=== PATIENT | male | born 1995 | race Hispanic/Latino ===

== ENCOUNTER 2024-07-12 02:36 | Observation (INO) | payer OTHER ==
[2024-07-12] VITALS (8 sets, daily range): BP systolic 109–145; BP diastolic 58–74
[~2024-07-12] VITALS: Ht 172.7 cm; Wt 104.7 kg
[2024-07-12 03:02] LABS: BASOPHILS 0.1 % (0-2); EOSINOPHILS 0.1 % (0-6); HEMATOCRIT 43.2 % (35.0-50.0); LYMPHOCYTES 6.3 % (24-44); MCH 30.5 (27-36); MCHC 34.6 g/dl (30-36); MCV 88.1 fl (81-99); MONOCYTES 7.5 % (0-12); PLATELET COUNT 256 K/uL (140-440)
[2024-07-12 03:21] LABS: ALBUMIN 4.2 g/dL (3.4-5.0); ALKALINE PHOSPHATASE 344 U/L (46-116); ALT (SGPT) 696 U/L (14-59); ANION GAP 15.8 (7-21); AST (SGOT) 428 U/L (15-37); BILIRUBIN, TOTAL 2.9 mg/dL (0.2-1.0); BUN/CREATININE RATIO 10.71 (6.0-28.6); CALCIUM 9.1 mg/dL (8.5-10.1); CARBON DIOXIDE 28 mmol/L (21-32); CHLORIDE 102 mmol/L (98-107); CREATININE, SERUM 1.12 mg/dL (0.70-1.30); GLOMERULAR FILTRATION RATE,EST 91 mL/min (>60); POTASSIUM 3.8 mmol/L (3.5-5.1); PROTEIN, TOTAL 7.7 g/dL (6.4-8.2); UREA NITROGEN 12 mg/dL (7-18)
[2024-07-12] MEDS ORDERED: ondansetron HCL 4 MG/2 ML VIAL IV ONE (03:45)
[2024-07-12] MEDS ORDERED: SODIUM CHLORIDE 0.9% 2,000 ML IV SCH (03:45)
[2024-07-12] MEDS ORDERED: HYDROmorphone HCL 1 MG/ML SYR IV PRN ×3 (03:45→10:30)
[2024-07-12] MEDS ORDERED: CEFTRIAXONE SODIUM 2 GM VIAL ONE ×2 (06:14→06:17)
[2024-07-12] MEDS ORDERED: metroNIDAZOLE/SODIUM CHLORIDE 500 MG/100 ML PIGGYBACK IV ONE (06:30)
[2024-07-12] MEDS ORDERED: CEFTRIAXONE SODIUM 2 GM in SODIUM CHLORIDE 0.9% 100 ML IV ONE (06:30)
--- NOTE | 2024-07-12 07:32 | NUR ---
0647 - Pt admitted from ED via w/c. acompanied by . Pt alert and oriented. Oriented to room and procedures. Cooperative with vitals and admit questions and assessments
--- NOTE | 2024-07-12 07:43 | NUR ---
PT REPORT RECIEVED FROM BRENDA CARBALLO. PT LAYING IN BED WITH EYES CLOSED CHEST RISE EQUAL BILAT. PT IS IN ROOM ASLEEP WELL ON COUCH PT HAS CALL LIGHT IN REACH.
[2024-07-12] MEDS ORDERED: ondansetron HCL 4 MG/2 ML VIAL IV PRN ×2 (07:45→10:30)
[2024-07-12] MEDS ORDERED: SODIUM CHLORIDE 0.9% 1,000 ML IV SCH (07:45)
--- NOTE | 2024-07-12 08:00 | NUR ---
PT LAYING IN BED, WITH EYES CLOSED CHEST RISE EQUAL BILAT, CPOX IN PLACE PT O2 SAT STABLE. PT IS BED SIDE SLEEPING WELL. PT WAKES EASILY AND STATED " HE IS IN NO PAIN AT THIS TIME". PT HAS NO OTHER NEEDS AT THIS TIME CALL LIGHT IN REACH.
--- NOTE | 2024-07-12 10:20 | NUR ---
PT LAYING BED RESTING WITH EYES CLOSED. PT WAKENS EASILY AND HAS NO PAIN AT THIS TIME. MD MOSQUERA SPOKE WITH PT AND ADVANCED HIS DIET TO CLEARS. PT HAS NO CONCERNS AT THIS TIME CALL LIGHT IN REACH.
[2024-07-12] MEDS ORDERED: PANTOPRAZOLE SODIUM 40 MG/10 ML VIAL IV SCH (10:23)
[2024-07-12] MEDS ORDERED: ENOXAPARIN SODIUM 40 MG/0.4 ML SYR SUB-Q SCH (10:24)
[2024-07-12] MEDS ORDERED: OXYCODONE HCL 5 MG TAB PO PRN (10:30)
[2024-07-12] MEDS ORDERED: ACETAMINOPHEN 325 MG TAB PO PRN (10:30)
[2024-07-12] MEDS ORDERED: DEXTROSE 5% - LACTATED RINGERS 1,000 ML IV SCH (10:30)
[2024-07-12] MEDS ORDERED: PROCHLORPERAZINE EDISYLATE 10 MG/2 ML VIAL IV PRN (10:30)
--- NOTE | 2024-07-12 11:30 | NUR ---
PT LAYING IN BED, PT HAS ABD PAIN 8-10 GIVEN PRN DILAUDID (SEE EMAR). PT HAS NO OTHER CONCERNS AT THIS TIME PARENTS AT BEDSIDE. CALL LIGHT IN REACH
--- NOTE | 2024-07-12 12:03 | NUR ---
Hourly rounding. Patient is currently in bed. No request at this time. Family at bedside
--- NOTE | 2024-07-12 13:40 | NUR ---
PT LAYING IN BED, PT HAS NO REPORTS OF PAIN AT THIS TIME, PT HAS TOLERATED CLEAR LIQUID DIET WELL, PT HAS NO CONCERNS AT THIS TIME CALL LIGHT IN REACH.
--- NOTE | 2024-07-12 14:19 | NUR ---
Hourly rounding. Patient sleeping, girlfriend at bedside
--- NOTE | 2024-07-12 14:23 | CONS ---
[facility] [address], [place] [address] Signed DATE OF CONSULTATION: 07/12/2024 CHIEF COMPLAINT: Epigastric abdominal pain. HISTORY OF PRESENT ILLNESS: Kev is a 29-year-old gentleman who awoke last night with significant epigastric abdominal pain with nausea, vomiting, and some chills. He came to emergency room for evaluation. Apparently, he has had a couple of similar episodes, although much less painful in the last couple of years. He knows that he has gallstones from his previous workup. He never went to have his gallbladder surgery. In the emergency room, his white count was elevated along with his liver function tests and his amylase. He had an ultrasound done, which of course confirmed gallstones and some sludge, but the gallbladder wall is not thickened. There was no pericholecystic fluid. There was a negative Blakely sign and common bile duct was 6.3 mm. His liver seems unremarkable. We went ahead and did a CT scan of abdomen and pelvis in the ER and the gallbladder and liver but we can now see extensive peripancreatic inflammation, but an unremarkable pancreatic duct. I was asked to admit him as the local general surgeon on-call. He received some Rocephin and Flagyl in the ER. This morning, he seems to be doing quite well. His is at the bedside. PAST MEDICAL HISTORY: Cholelithiasis. PAST SURGICAL HISTORY: None. SOCIAL HISTORY: He does not smoke or drink. Dr. Omar Mead is his primary care provider. His is [employer] at [phone]. 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 FAMILY HISTORY: None. REVIEW OF SYSTEMS: He had 10 systems reviewed and told me he has not had any trouble bleeding over the years, but he has never had any surgery. ALLERGIES: None. MEDICATIONS: Electronically Signed By: LINO MOSQUERA MD 07/12/24 1423 PATIENT NAME: JULIAN PYLE CONSULTATION DATE OF : [birth year] REPORT #: [id number] PHYSICIAN: LINO MOSQUERA MD PCP: NO PRIMARY CARE PHYSICIAN REPORT IS CONFIDENTIAL AND NOT TO BE RELEASED WITHOUT AUTHORIZATION [facility] [address], [place] [address] Signed None. PHYSICAL EXAMINATION: VITAL SIGNS: His blood pressure is 116/67, his heart rate is 71, his respiratory rate is 16, temperature is 97.7 degrees. He is 95% on room air. He is 5 feet 8 inches tall at 104 kg with a body mass index of 35. GENERAL: Kev is a 29-year-old young man lying supine in his hospital bed. His is in the room. He is in no acute distress. He is not jaundiced. LUNGS: Clear to auscultation bilaterally. HEART: Regular rate and rhythm without murmurs. ABDOMEN: Moderately protuberant but generally soft. He is tender across the epigastric area, but no peritoneal signs or symptoms. he is not tender in the right upper quadrant. LABORATORY DATA: His white blood cell count is 14, hemoglobin 15, neutrophils 86, platelets 256, creatinine 1.1, total bilirubin was 2.9, AST 428, ALT 696, alkaline phosphatase 344, amylase is 2230 and his albumin is 4.2. RADIOGRAPHIC STUDIES: The ultrasound shows an unremarkable liver. There are several stones and sludge in the gallbladder. The gallbladder wall is not thickened. There is no pericholecystic fluid. There is no positive Blakely sign and common bile duct was 6.[address] scan of abdomen and pelvis shows the liver and gallbladder the same, but he has extensive peripancreatic inflammation. The pancreatic duct is unremarkable. ASSESSMENT AND PLAN: Kev is a 29-year-old young man, who presents with gallstone pancreatitis. He has been admitted and we started him on conservative therapy. I met with Kev and his and I brought them our brochure on the gallbladder. We went through it page by page. He understands the relationship of the gallstones, the pancreas and the pancreatitis. He needs to wait and get this settled down a bit so we can get his gallbladder either on this admission or within a week or two or so after the discharge. They have expressed understanding, agreed above plan. Lino Mosquera MD ALB/MODL /[id number] Electronically Signed By: LINO MOSQUERA MD 07/12/24 1423 PATIENT NAME: JULIAN PYLE CONSULTATION DATE OF : [birth year] REPORT #: [id number] PHYSICIAN: LINO MOSQUERA MD PCP: NO PRIMARY CARE PHYSICIAN REPORT IS CONFIDENTIAL AND NOT TO BE RELEASED WITHOUT AUTHORIZATION [address] [address] Signed cc: MD Dr. Omar Izquierdo Copies: LINO MOSQUERA MD ~ Electronically Signed By: LINO MOSQUERA MD 07/12/24 1423 PATIENT NAME: PYLEJULIAN CONSULTATION DATE OF : [birth year] REPORT #: [id number] PHYSICIAN: LINO MOSQUERA MD PCP: NO PRIMARY CARE PHYSICIAN REPORT IS CONFIDENTIAL AND NOT TO BE RELEASED WITHOUT AUTHORIZATION
--- NOTE | 2024-07-12 15:46 | NUR ---
MED REC COMPLETE
--- NOTE | 2024-07-12 15:47 | NUR ---
PT LAYING IN BED WITH AT BED SIDE. PT HAS SCDS ON AND CPOX IN PLACE PT HAS NO PAIN AT THIS TIME CALL LIGHT IN REACH.
--- NOTE | 2024-07-12 16:45 | NUR ---
PT LAYING IN BED AWAKE AND ALERT, PT HAS NO PAIN AT THIS TIME, PT MOTHER IS IN ROOM AT BED SIDE. PT/FAMILY HAVE NO CONCERNS AT THIS TIME CALL LIGHT IN REACH.
--- NOTE | 2024-07-12 17:59 | NUR ---
PT AMBULATING HALLS WITH CHUCK SPLITTER ASSISTANCE. PT RETURNED TO BED, AND URINE SAMPLE COLLECTED PT DID NOTE HE HAD SOME SLIGH DISCOMFORT WHILE WALKING. PT HAS CALL LIGHT IN REACH.
[2024-07-12 18:02] LABS: BILIRUBIN, URINE NEGATIVE (negative); BLOOD/HGB, URINE NEGATIVE (Negative); KETONE, URINE NEGATIVE (Negative); LEUK ESTERASE, URINE NEGATIVE (negative); NITRITE, URINE NEGATIVE (negative)
[2024-07-12 18:12] LABS: BACTERIA, URINE NONE SEEN /hpf (negative); CASTS, URINE NONE SEEN \\lpf; COLLECTION TYPE, URINE CLEAN CATCH; CRYSTALS, URINE NONE SEEN (0-1+); EPITHELIAL CELLS, URINE SQUAMOUS 1+ /lpf (0-1+); RED BLOOD CELLS, URINE 0-1 /hpf (0-5); REFLEX CULTURE, URINE No (No); WHITE BLOOD CELLS, URINE 0-1 /HPF (0-5)
--- NOTE | 2024-07-12 18:51 | NUR ---
PT LAYING IN BED WITH AT BEDSIDE PT REPORTS NO PAIN AT THIS TIME, PT HAS NO CURRENT CONCERNS AT THIS TIME AND HAS CALL LIGHT IN REACH.
--- NOTE | 2024-07-12 19:33 | NUR ---
REPORT RECEIVED FROM DAY SHIFT RN. PT LYING IN BED ALERT AND ORIENTED. DENIES NEEDS. WHITE BOARD UPDATED. CALL LIGHT IN REACH.
--- NOTE | 2024-07-12 20:37 | NUR ---
PT RESTING WITH EYES CLOSED. AWAKENS EASILY. VS AND I&O OBTAINED. EVENING ASSESSMENT COMPLETE. PT REPORTS ABD PAIN 09/29. PRN FOR PAIN ADMIN PER EMAR. NEW BAG IVF INFUSING WNL. PT DENIES NAUSEA. PT DENIES QUESTIONS OR CONCERNS. PT UP TO AMB IN [facility] WITH .
--- NOTE | 2024-07-12 23:10 | NUR ---
PT RESTING IN BED WITH EYES CLOSED. RESPIRATIONS EVEN. CALL LIGHT IN REACH.
--- NOTE | 2024-07-13 00:41 | NUR ---
PT RESTING IN BED WITH EYES CLOSED. RESPIRATIONS EVEN. CALL LIGHT IN REACH.
[2024-07-13 01:35] VITALS: BP 132/77
--- NOTE | 2024-07-13 01:38 | NUR ---
PT RESTING WITH EYES CLOSED. AWAKENS EASILY. VS AND I&O OBTAINED. PT REPORTS ABD PAIN TOLERABLE AT THIS TIME. ASSESSMENT UNCHANGED. NO NEEDS AT THIS TIME. CALL LIGHT IN REACH.
[2024-07-13 01:39] VITALS: BP 132/77
--- NOTE | 2024-07-13 02:41 | NUR ---
JULIAN IS ASLEEP ON ROOM AIR WITH THE HOB FLAT. RT FOUND JULIAN OFF THE CPOX, DID NOT PUT IT BACK ON.
--- NOTE | 2024-07-13 03:03 | NUR ---
PT RESTING IN BED WITH EYES CLOSED. RESPIRATIONS EVEN. CALL LIGHT IN REACH.
[2024-07-13 05:17] LABS: BASOPHILS 0.1 % (0-2); EOSINOPHILS 0.8 % (0-6); HEMOGLOBIN 13.4 g/dL (12.0-18.0); LYMPHOCYTES 19.5 % (24-44); MCH 30.5 (27-36); MCHC 34.2 g/dl (30-36); MCV 89.1 fl (81-99); NEUTROPHILS 69.6 % (39-80); PLATELET COUNT 219 K/uL (140-440); RBC 4.38 M/ul (4.3-5.7)
[2024-07-13 05:22] VITALS: BP 126/68
[2024-07-13 05:32] LABS: ALBUMIN 3.5 g/dL (3.4-5.0); ALBUMIN/GLOBULIN RATIO 1.09 (1.1-2.4); ANION GAP 9.9 (7-21); BILIRUBIN, TOTAL 1.1 mg/dL (0.2-1.0); BUN/CREATININE RATIO 6.79 (6.0-28.6); CALCIUM 9.1 mg/dL (8.5-10.1); CREATININE, SERUM 1.03 mg/dL (0.70-1.30); MAGNESIUM 1.7 mg/dL (1.8-2.4); PHOSPHORUS, INORGANIC 3.2 mg/dL (2.5-4.9); POTASSIUM 3.9 mmol/L (3.5-5.1); PROTEIN, TOTAL 6.7 g/dL (6.4-8.2)
--- NOTE | 2024-07-13 05:46 | NUR ---
PT LYING ON LEFT SIDE IN BED RESTING WITH EYES CLOSED. RESPIRATIONS EVEN. RESTING ON COUCH. CALL LIGHT IN REACH.
--- NOTE | 2024-07-13 07:35 | NUR ---
MORNING REPORT RECIEVED FROM BRENDA HARMON. PT HAD NO PROBLEMS LAST NIGHT WITH MILD TO LITTLE PAIN. PT SLEPT WELL AND IS CURRENTLY LAYING IN BED WITH EYES CLOSED AND CHEST RISE EQUAL BILAT. PT HAS CALL LIGHT IN REACH.
--- NOTE | 2024-07-13 07:51 | NUR ---
Hourly rounding. Board has been updated and call light has been placed within reach
[2024-07-13] MEDS ORDERED: CEFTRIAXONE SODIUM 2 GM VIAL ONE (08:47)
[2024-07-13] MEDS ORDERED: CEFTRIAXONE SODIUM 2 GM in SODIUM CHLORIDE 0.9% 100 ML IV SCH (09:00)
[2024-07-13] MEDS ORDERED: metroNIDAZOLE/SODIUM CHLORIDE 500 MG/100 ML PIGGYBACK IV SCH (09:00)
--- NOTE | 2024-07-13 09:00 | NUR ---
PT SITTING UP IN CHAIR, PT COMPLAINED OF PAIN 8-10 PT GIVEN PRN OXY (SEE EMAR). PT HAS NO OTHER CONCERNS AT THIS TIME AND HOPES TO BE DC'D TODAY.
[2024-07-13 09:21] VITALS: BP 106/65
--- NOTE | 2024-07-13 09:40 | NUR ---
UP IN RECLINER WITH SPOUSE IN ROOM. NO DME AT HOME. DRIVES AT BASELINE. STATES HE HAS NO FINANCIAL DIFFICULTY. PLAN TO DC TO HOME WITH TODAY. NO CM NEEDS.
[2024-07-13] MEDS ORDERED: OXYCODONE HCL5 MG PO (09:45)
[2024-07-13] MEDS ORDERED: TYLENOL EXTRA500 MG PO (09:46)
[2024-07-13] MEDS ORDERED: VENTOLIN HFA18 GM (09:46)
[2024-07-13 10:00] VITALS: BP 106/65
--- NOTE | 2024-07-13 10:00 | NUR ---
PT SITTING UP IN CHAIR, PT SPOKE WITH MD MOSQUERA ABOUT BEING DISCHARGED HOME TODAY AND THEN FOLLOWING UP ON A LATER DATE. PT HAS NO FURTHER COCNERNS AT THIS TIME PT HAS CALL LIGHT IN REACH.
--- NOTE | 2024-07-13 10:03 | NUR ---
UR CLINICAL REVIEW: MCG-PER MCG REVIEW MEETS INPT CRITERIA FOR PANCREATITIS. NOTES POSSIBLE DC WITH [facility] AT A LATER DATE. [facility] OBS 07/12/24 @ 0238 ORDER MATCHES REG NO AUTH REQUIRED FOR OBS VISIT PER GUIDELINES. PER AM MEETING AND MD NOTE DC TODAY WITH F/U
--- NOTE | 2024-07-13 10:28 | DS ---
[facility] [address], [place] [address] Signed ADMISSION DATE: 07/12/2024 DISCHARGE DATE: 07/12/2024 FINAL DIAGNOSIS: Gallstone pancreatitis. PROCEDURES: 1. Ultrasound of the abdomen. 2. CT scan of abdomen and pelvis. 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 He had about a half day of rather significant epigastric abdominal pain with nausea, vomiting, and chills. He said it is his 3rd episode over a couple of years. He ended up in the emergency room for evaluation. His white count was elevated along with liver function test. The amylase was quite high at 2230. Ultrasound showed the stones and sludge in the gallbladder. The gallbladder wall was not thickened. There was no pericholecystic fluid. There was a negative Blakely sign. The liver was unremarkable. His common bile duct was 6.[address] scan of abdomen and pelvis was performed and it showed the extensive peripancreatic inflammation, but the pancreatic duct was unremarkable. I have been asked to admit him as a general surgeon on-call for his gallstone pancreatitis. HOSPITAL COURSE: Zainab was admitted as above and allowed clear liquids along with some IV fluids and pain control. We gave him some Rocephin and Flagyl, though probably not necessary. By the very next morning, he had a significant decrease in his liver function tests as well as the amylase down to 434. He still has moderate fullness in his epigastric area, although the pain has markedly improved. I had brought a brochure on the gallbladder to review with him and his . We went over this concept of gallstone pancreatitis in great detail. Generally, we would keep these patients in the hospital for a few days and let everything settle down and then do the gallbladder surgery before we discharge them. However, he does have the option to go home, stay off work for a week and come see me at the office and we will get this done in about two weeks or so. There is the risk that he could have recurrent gallstone pancreatitis. However, it does allow the pancreas to settle down significantly, which often helps technically with respect to the surgery. He felt that would be a better option. Therefore, we are going to be discharging him to home today with his . DISCHARGE PLANS AND MEDICATIONS: We will send Zainab home with a prescription for oxycodone immediate release 5 mg Electronically Signed By: LINO MOSQUERA MD 07/13/24 1028 PATIENT NAME: JULIAN PYLE DISCHARGE SUMMARY DATE OF : [birth year] REPORT #: [id number] PHYSICIAN: LINO MOSQUERA MD PCP: NO PRIMARY CARE PHYSICIAN REPORT IS CONFIDENTIAL AND NOT TO BE RELEASED WITHOUT AUTHORIZATION [address] [address] Signed tablets one p.o. q.8 hours p.r.n. for severe pain. We will dispense 15 tablets with no refills. He can use the Tylenol, ibuprofen or Aleve as needed for abdominal pain. We will see him back in the office in about 5 to 7 days. We will plan on getting the surgery done here in a few weeks. He can always call the office or return if needed. He has expressed understanding and agrees with the above plan. Lino Mosquera MD ALB/MODL /[id number] cc: MD Dr. Omar Izquierdo Copies: LINO MOSQUERA MD ~ Electronically Signed By: LINO MOSQUERA MD 07/13/24 1028 PATIENT NAME: JULIAN PYLE DISCHARGE SUMMARY DATE OF : [birth year] REPORT #: [id number] PHYSICIAN: LINO MOSQUERA MD PCP: NO PRIMARY CARE PHYSICIAN REPORT IS CONFIDENTIAL AND NOT TO BE RELEASED WITHOUT AUTHORIZATION
--- NOTE | 2024-07-13 11:00 | NUR ---
PT SITTING IN CHAIR, PT INFUSION OF ABX FINISHED AND IV REMOVED, PT WAS GIVEN DC PAPER WORK AND HAS NO FURTHER QUESTIONS AT THIS TIME. PT AWATING PHARMACY FOLLOW UP.
[2024-07-13 11:26] VITALS: BP 139/76
== END 2024-07-13 11:28 | disposition home or self-care (01) ==
LOC: ED 02:36 → MS 02:38
PROVIDERS: Emergency Medicine; ADMIT Colon & Rectal Surgery; ATTEND Colon & Rectal Surgery
DX: K85.10 Biliary acute pancreatitis without necrosis or infection (principal)
CPT/HCPCS: 36415; 74177; 76705; 80053; 81001; 82150; 83690; 83735; 84100; 85025; 94762; 96361; 96365; 96372; 96375; 96376; 99285-25; A9270; G0378; J0696; J1171; J1650; J2405; J2470; J7030; J7121; Q9967